=== PATIENT | female | born 1990 | race Caucasian/White ===

== ENCOUNTER 2016-09-05 14:33 | Emergency (ER) | payer OTHER ==
[2016-09-05] MEDS ORDERED: NORCO-7.5 PO ONE (15:25)
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
[2016-09-05 16:20] LABS: BILIRUBIN URINE NEGATIVE (NEGATIVE); BLOOD URINE 4+ (NEGATIVE); CLARITY SL. CLOUDY (CLEAR); COLOR AMBER; GLUCOSE URINE NEGATIVE (NEGATIVE); LEUKOCYTES URINE 2+ (NEGATIVE); NITRITE URINE NEGATIVE (NEGATIVE); PROTEIN URINE 1+(30 mg/dL) mg/dL (NEGATIVE); UROBILINOGEN URINE 1+(1 mg/dL)
[2016-09-05] MEDS ORDERED: ROCEPHIN IM ONE (16:28)
[2016-09-05] MEDS ORDERED: GENTAMICIN IM ONE (16:28)
[2016-09-05] MEDS ORDERED: XYLOCAINE-MPF 1% INJ ONE (16:28)
[2016-09-05 16:42] LABS: URINE RBC 20-40 /HPF (<10)
[2016-09-05 16:43] LABS: URINE CAST NONE SEEN /LPF; URINE CRYSTAL NONE SEEN /HPF; URINE CULTURE PL NEEDED? YES; URINE EPITHELIAL CELLS >10 /HPF (<10); URINE SOURCE CLEAN CATCH
[2016-09-05 16:46] VITALS: BP 124/77
== END 2016-09-05 16:44 | disposition home or self-care (01) ==
LOC: P.ED 14:33
DX: S05.12XA Contusion of eyeball and orbital tissues, left eye, initial encounter (principal); N39.0 Urinary tract infection, site not specified; R51 Headache; H57.12 Ocular pain, left eye; F17.210 Nicotine dependence, cigarettes, uncomplicated; Z71.6 Tobacco abuse counseling; Y04.2XXA Assault by strike against or bumped into by another person, initial encounter
CPT/HCPCS: 81001; 87088; 96372; J0696; J1580